=== PATIENT | male | born 1965 | race Caucasian/White ===

== ENCOUNTER → 2016-04-24 | Outpatient (CLI) | payer BC, OTHER ==
[~2016-04-24] VITALS: Ht 182.9 cm; Wt 106.6 kg
[~2016-04-24] MED LIST: LIDOCAINE 2% INJ 100 MG/5 ML SDV (FOR ANES.) As Ordered ONE; NS 1,000 ML IV SCH; PROPOFOL 200 MG/20 ML VIAL As Ordered ONE
--- NOTE | 2016-04-24 11:54 | ROOR ---
Patient Name: Shane Stack Procedure Date: 04/24/2016 11:37 AM Date of : 1965 Age: 51 Room: [facility] Gender: Male Note Status: Finalized Procedure: Colonoscopy to Cecum Indications: High risk colon cancer surveillance: Personal history of colonic polyps, Last colonoscopy: 2010 Providers: Aneesh Johnson MD Referring MD: SAMUEL RIZO JR, MD Requesting Provider: Medicines: Monitored Anesthesia Care Complications: No immediate complications. Procedure: Pre-Anesthesia Assessment: - The heart rate, respiratory rate, oxygen saturations, blood pressure, adequacy of pulmonary ventilation, and response to care were monitored throughout the procedure. The Colonoscope was introduced through the anus and advanced to the cecum, identified by appendiceal orifice and ileocecal valve. The colonoscopy was performed without difficulty. The patient tolerated the procedure well. The quality of the bowel preparation was excellent. Findings: The perianal and digital rectal examinations were normal. Non-bleeding internal hemorrhoids were found during retroflexion. The hemorrhoids were small and Grade I (internal hemorrhoids that do not prolapse). No other significant abnormalities were identified in a careful examination of the remainder of the colon. The exam was otherwise without abnormality on direct and retroflexion views. Impression: - Non-bleeding internal hemorrhoids. - The examination was otherwise normal on direct and retroflexion views. - No specimens collected. - The exam was otherwise normal to the cecum. Recommendation: - Patient has a contact number available for emergencies. The signs and symptoms of potential delayed complications were discussed with the patient. Return to normal activities tomorrow. Written discharge instructions were provided to the patient. - High fiber diet. - Discharge patient to home. - Continue present medications. - Repeat colonoscopy in 5 years for surveillance. - Return to referring physician. - The findings and recommendations were discussed with the patient's family. Aneesh Johnson MD Aneesh Johnson MD 04/24/2016 11:54:01 AM This report has been signed electronically. Number of Addenda: 0 Note Initiated On: 04/24/2016 11:37 AM Estimated Blood Loss: Estimated blood loss: none.
[2016-04-24 12:10] VITALS: BP 142/83
== END | disposition home or self-care (01) ==
LOC: M OPP 10:57
PROVIDERS: ATTEND Internal Medicine Gastroenterology
DX: Z12.11 Encounter for screening for malignant neoplasm of colon (principal); K64.0 First degree hemorrhoids; Z86.010 Personal history of colon polyps; Z88.0 Allergy status to penicillin

== ENCOUNTER 2016-08-18 08:45 | Emergency (ER) | payer OTHER ==
[~2016-08-18] VITALS: Ht 182.9 cm; Wt 112.9 kg
[2016-08-18] MEDS ORDERED: MORPHINE 4 MG/ML 1ML SYRINGE IV ONE (11:00)
[2016-08-18] MEDS ORDERED: ONDANSETRON 4MG/2ML VIAL (J2405) IV ONE (11:00)
[2016-08-18 11:50] LABS: BASO # 0.1 K/mm3 (0.0-0.2); EOS % 0.7 % (0.0-3.0); LARGE UNSTAINED CELL # 0.1 K/mm3 (0.0-0.4); LARGE UNSTAINED CELL % 2.1 % (0.0-4.0); LYMPH # 1.2 K/mm3 (1.5-4.5); LYMPH % 18.6 % (24.0-44.0); MEAN CORPUSCULAR HEMOGLOBIN 33.4 pg (27.0-33.0); MEAN CORPUSCULAR HGB CONC 35.3 g/dl (32.0-36.5); MEAN CORPUSCULAR VOLUME 94.8 fl (80.0-96.0); MONO # 0.3 K/mm3 (0.0-0.8); MONO % 4.9 % (0.0-5.0); NEUTROPHILS # 4.7 K/mm3 (1.8-7.7); NEUTROPHILS % 72.6 % (36.0-66.0); PLATELET COUNT, AUTOMATED 304 k/mm3 (150-450); RED CELL DISTRIBUTION WIDTH 11.5 % (11.5-14.5); WHITE BLOOD COUNT 6.5 K/mm3 (4.0-10.0)
--- NOTE | 2016-08-18 11:56 | REP ---
CHEST PA AND LATERAL: 08/18/2016 COMPARISON: 04/25/2012, CT chest 08/25/2013. CLINICAL HISTORY: Chest pain. Left-sided back pain. FINDINGS: Lungs are well inflated and without pleural effusion, acute infiltrate, atelectasis or mass. The cardial fat pad along the left heart and right heart tracking into the fissures. No parenchymal mass, nodule, cardiomegaly or edema. The aorta normal. Airway is intact. Bony thorax shows no acute compression deformity with small marginal osteophytes. No free air under the diaphragm. IMPRESSION: 1. No acute cardiopulmonary change. Stable chest. Signed by Didier Wells MD 08/18/2016 07:35 P
--- NOTE | 2016-08-18 11:57 | REP ---
LEFT SHOULDER, COMPLETE: 08/18/2016 CLINICAL HISTORY. Shoulder pain. COMPARISON: None. FINDINGS: Minor spurring of the clavicle at the AC joint without widening of the joint space or elevation of the clavicle in relationship to the acromion. No fracture of the clavicle, scapula, visible humerus or ribs. No subluxation, dislocation of the humeral head or degenerative changes in the glenohumeral joint. No abnormal soft tissue calcifications. Impression: 1. Minor AC joint arthritis. No fracture, subluxation or other acute finding. Signed by Didier Wells MD 08/18/2016 07:35 P
[2016-08-18 12:11] LABS: ALBUMIN 4.1 GM/DL (3.2-5.2); ALBUMIN/GLOBULIN RATIO 1.05 (1.00-1.93); ALKALINE PHOSPHATASE 73 U/L (45-117); ALT/SGPT 32 U/L (12-78); ANION GAP 3 MEQ/L (8-16); AST/SGOT 17 U/L (15-37); BILIRUBIN,TOTAL 0.5 MG/DL (0.2-1.0); BLOOD UREA NITROGEN 19 MG/DL (7-18); CALCIUM LEVEL 8.7 MG/DL (8.5-10.1); CARBON DIOXIDE LEVEL 31 MEQ/L (21-32); CHLORIDE LEVEL 108 MEQ/L (98-107); CREATININE FOR GFR 0.88 MG/DL (0.70-1.30); GLOMERULAR FILTRATION RATE > 60.0 (>60); GLUCOSE, FASTING 93 MG/DL (70-105); POTASSIUM SERUM 4.4 MEQ/L (3.5-5.1); SODIUM LEVEL 142 MEQ/L (136-145)
--- NOTE | 2016-08-18 12:13 | REP ---
LEFT UPPER EXTREMITY DOPPLER VENOUS ULTRASOUND: 08/18/2016 CLINICAL HISTORY: Left upper extremity pain, evaluate for DVT. COMPARISON: None. FINDINGS: Standard duplex techniques were utilized. The jugular and subclavian veins show color filling the course of the vessels without evidence of thrombus. There is respiratory variation and augmentation. The axillary and brachial veins of the deep system show compressibility and no visible thrombus. Color flow is patent throughout. There is respiratory variation and augmented flow. The cephalic and basilic veins of the superficial system also show full compressibility without thrombus and with normal respiratory variation and augmented flow. IMPRESSION: 1. No Doppler venous ultrasound evidence of DVT in the left upper extremity. Signed by Didier Wells MD 08/18/2016 07:36 P
[2016-08-18 12:48] VITALS: BP 140/69
[2016-08-18] MEDS ORDERED: MOBI4TAB PO (12:49)
[2016-08-18] MEDS ORDERED: ZANA4TAB PO (12:49)
[2016-08-18] MEDS ORDERED: PERC5TAB12 PO (12:49)
--- NOTE | 2016-08-18 16:15 | ECGEPIP ---
Stationary ECG Study [facility] - ED Test Date: 2016-08-18 Pat Name: CECI SELBY Department: Room: - Gender: M Game Agent: : 1965 Requested By: Claude Villalpando Order Number: [id number] Reading MD: Claude Haider Measurements Intervals Magna Rate: 63 P: 21 MI: 148 QRS: 26 QRSD: 112 T: 29 QT: 401 QTc: 414 Interpretive Statements SINUS RHYTHM MODERATE INTRAVENTRICULAR CONDUCTION DELAY SIMILAR TO 04/25/12 Electronically Signed On 08-18-2016 16:15:22 EDT by Claude Haider
== END 2016-08-18 13:16 | disposition home or self-care (01) ==
LOC: M ED 10:36
DX: M25.512 Pain in left shoulder (principal); M75.82 Other shoulder lesions, left shoulder; Z88.0 Allergy status to penicillin
CPT/HCPCS: 71020; 73030; 80053; 82550; 82553; 85025; 93005; 93971; 96374; 96375; 99283; J2405

== ENCOUNTER → 2016-09-09 | Outpatient (CLI) | payer OTHER ==
[~2016-09-09] MED LIST changes: -LIDOCAINE 2% INJ 100 MG/5 ML SDV (FOR ANES.) As Ordered ONE; +MOBI4TAB PO; -NS 1,000 ML IV SCH; +PERC5TAB12 PO; -PROPOFOL 200 MG/20 ML VIAL As Ordered ONE; +ZANA4TAB PO
--- NOTE | 2016-09-09 10:13 | REP ---
CT abdomen pelvis without IV and oral contrast: There are no renal or ureteral calculi on the right on the left. No bladder calculi. There is mild right renal hydronephrosis and right ureteral distension as a change from the comparison study. However, there are no renal or ureteral calculi on the right or on the left. There are no bladder calculi. Findings may be from edema or of the distal right ureter for a recently passed calculus or fibrosis of the distal right ureter. There is a 14 mm left renal cyst, not significantly changed. In the absence of IV contrast the study is insensitive for renal masses. The visualized lung choi are unremarkable. The unenhanced hepatic parenchyma demonstrates an hepatic cyst in the medial segment of the hepatic left lobe on image 28, not present previously. The unenhanced hepatic parenchyma is otherwise homogeneous. The gallbladder, pancreas and spleen are unremarkable. The adrenals, abdominal aorta, bowel and mesentery are. Pelvis: The appendix is not identified, however there is no pericecal inflammation or abscess. There is no ascites or adenopathy. The bladder is nondistended and cannot be further evaluation evaluated. There are bilateral fat containing inguinal hernias. Impression: Mild right hydronephrosis and hydroureter without renal or ureteral calculus. There is no bladder calculus. Finding may be secondary to edema or fibrosis of the distal right ureter, possibly from recent calculus passage. There is a stable left renal cortical cyst. There is an hepatic cyst. No ascites or adenopathy. Otherwise, negative CT of the abdomen and pelvis. Signed by Adalberto Iverson MD 09/09/2016 10:04 A
== END ==
LOC: M RAD 09:16
PROVIDERS: ATTEND Physician Assistant
DX: N13.2 Hydronephrosis with renal and ureteral calculous obstruction (principal); N28.1 Cyst of kidney, acquired; K76.89 Other specified diseases of liver

== ENCOUNTER → 2016-09-11 | Outpatient (REF) | payer OTHER ==
[2016-09-11 19:41] LABS: MICROSCOPIC INDICATED? MAN YES (NO)
[2016-09-11 19:43] LABS: RBC, URINE 15-20 /hpf (0-3)
[2016-09-11 19:44] LABS: BACTERIA, URINE NONE SEEN
[2016-09-11 19:45] LABS: HYALINE CAST, URINE NONE SEEN /lpf (0-1); MICROSCOPIC EXAM PERFORMED; SQUAMOUS EPITHELIAL CELL URINE SMALL AMOUNT /hpf (SMALL AMT)
== END ==
LOC: M LAB REF 16:36
PROVIDERS: ATTEND Nurse Practitioner Family
DX: N20.1 Calculus of ureter (principal)

== ENCOUNTER → 2016-10-25 | Outpatient (REF) | payer OTHER ==
[2016-10-25 14:24] LABS: FOLATE 18.4 NG/ML
== END ==
LOC: M LAB REF 08:42
PROVIDERS: ATTEND Internal Medicine
DX: R20.9 Unspecified disturbances of skin sensation (principal)

== ENCOUNTER → 2018-10-30 | Outpatient (REF) | payer OTHER | LOC: M LAB REF 12:56 | PROVIDERS: ATTEND Internal Medicine | DX: Z01.89 Encounter for other specified special examinations (principal) ==

== ENCOUNTER → 2021-10-14 | Outpatient (CLI) | payer OTHER | LOC: M LABSMTC 10:31 | PROVIDERS: ATTEND Anesthesiology | DX: Z01.818 Encounter for other preprocedural examination (principal); Z11.52 Encounter for screening for COVID-19 ==

== ENCOUNTER 2021-10-17 09:41 | Day surgery (SDC) | payer OTHER ==
[~2021-10-17] VITALS: Ht 180.3 cm; Wt 106.1 kg
[~2021-10-17 09:41] MED LIST changes: +NS 1,000 ML IV ONE
[2021-10-17] MEDS ORDERED: LIDOCAINE 2% 100MG/5ML SDV (FOR ANES.) As Ordered ONE (10:38)
[2021-10-17] MEDS ORDERED: propofoL 200 MG/20 ML VIAL As Ordered ONE ×2 (10:38→10:55)
[2021-10-17 11:20] VITALS: BP 137/87
== END 2021-10-17 11:26 | disposition home or self-care (01) ==
LOC: M OPP 09:41
PROVIDERS: ATTEND Internal Medicine Gastroenterology
DX: Z12.11 Encounter for screening for malignant neoplasm of colon (principal); Z86.010 Personal history of colon polyps; K64.0 First degree hemorrhoids; Z88.0 Allergy status to penicillin

== ENCOUNTER → 2022-04-08 | Outpatient (REF) | payer OTHER ==
[~2022-04-08] MED LIST changes: -NS 1,000 ML IV ONE
== END ==
LOC: M SFHCDERM 14:11
PROVIDERS: ATTEND Physician Assistant
DX: L57.0 Actinic keratosis (principal); L57.9 Skin changes due to chronic exposure to nonionizing radiation, unspecified

== ENCOUNTER → 2022-07-10 | Outpatient (REF) | payer OTHER | LOC: M SFHCDERM 14:38 | PROVIDERS: ATTEND Physician Assistant | DX: D22.4 Melanocytic nevi of scalp and neck (principal) ==

== ENCOUNTER → 2022-08-13 | Outpatient (REF) | payer OTHER | LOC: M LAB REF 18:04 | PROVIDERS: ATTEND Surgery | DX: D48.5 Neoplasm of uncertain behavior of skin (principal) ==